=== PATIENT | female | born 1990 | race Caucasian/White ===

== ENCOUNTER 2018-01-02 16:35 | Emergency (ER) | payer OTHER, SELFPAY ==
[2018-01-02 16:59] VITALS: BP 129/79; PULSE 76; RESP 16; TEMP 36.9; O2SAT 97
--- NOTE | 2018-01-02 17:59 | ED.GENADUL_ITS ---
Disposition Clinical Impression: Contusion of right ankle Disposition: HOME Condition: Stable Instructions: Contusion in Adults (ED), RICE Therapy (ED) Additional Instructions: Continue to use tyat-byh-ibnjolu Tylenol Motrin along with icing and elevating her right ankle. Otherwise you may continue to walk and perform normal activities. If the supportive ankle brace that you were given helps you may wear this but this is necessary at all times given diagnosis of a contusion and not a sprain. If you not having signs of improvement over the next 2 weeks please follow-up with your primary care provider for reassessment. Referrals: Ramona Mcnamara NP [Primary Care Provider] - 2 weeks (If not showing signs of improvement please follow-up with your primary care provider for reassessment in the next 2 weeks.) Medical Decision Making - Medical Decision Making Patient reporting blunt trauma to right lateral ankle that occurred couple days ago. She has been icing it and resting it with [id number] pain medication use but is still having continued discomfort especially with walking. 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 Utilizing auto ankle rules patient does not need any imaging at this time as she is fully ambulatory and no bony tenderness to palpation of the ankle but soft tissue tenderness is noted just below the lateral malleolus. Given this I do feel that patient's symptoms are consistent with contusion. Typically I would use an Pino wrap but given patient's occupation and walking around a lot I feel that this may easily come undone so patient was given a lace up ankle brace as I feel that this will provide some more support and stay in place better for her occupation. Patient was encouraged to rest ice and elevate but otherwise I feel that she may continue her activity as normal. Patient was encouraged to follow-up with primary care if not improving over the next 2 weeks. After discussion of diagnosis and plan of care with patient patient agreed and stated no further needs, questions, or concerns at this time. History of Present Illness - General Chief complaint: Orthopedic Stated complaint: INJURED ANKLE Time Seen by Provider: 01/02/18 17:56 Source: patient, RN notes reviewed Mode of arrival: ambulatory Limitations: no limitations - History of Present Illness Initial comments: Patient reports 3 days ago she struck the lateral aspect of her right ankle on a screen door. Since then she has had some swelling to the area and minimal amount of pain but with any significant walking or ambulation she does notice a increase in discomfort. Patient is concerned due to being a script developer here at the hospital and having to be on her feet a lot with this increasing or worsening discomfort and pain. Onset/Timin -: days(s) Location: right, lower extremity (ankle) Severity scale (1-10): 2 Quality: aching Consistency: constant Improves with: rest Worsens with: movement Associated Symptoms: denies other symptoms Treatments Prior to Arrival: NSAID - Related Data [place]-3 Fatty Acids [Fish Oil] 300 mg PO DAILY PRN 11/01/16 l-Norgest/E.estradiol-E.estrad [Camrese 0.15-0.03-0.01 mg Tab] 1 tab-cap PO DAILY 90 Days #1 tab-cap 09/09/17 Triamcinolone [Kenalog 0.025% Oint] 2 - 4 gm TP BID PRN #1 tube 11/18/17 Sertraline HCl 50 mg PO DAILY #90 tab-cap 11/19/17 Naproxen Sodium [Aleve] 1 - 2 tab PO PRN PRN 01/02/18 Allergies Allergy/AdvReac Type Severity Reaction Status Date / Time lactose Allergy Unknown Other (See Unverified 01/02/18 17:16 Comment) Review of Systems Constitutional: no symptoms reported. denies: chills, fever Respiratory: no symptoms reported Cardiovascular: denies: syncope Musculoskeletal: as per HPI, joint swelling, arthralgia Skin: denies: change in color Comment: All other systems reviewed and negative Past Medical History - Past Medical History Medical history: no medical history Surgical history: no surgical history - Social History Smoking status: never smoker Alcohol use: rarely Drug use: none General Exam - General Limitations: no limitations General appearance: alert, in no apparent distress - Head Head exam: Present: atraumatic - Respiratory Respiratory exam: Absent: respiratory distress - Cardiovascular Cardiovascular Exam: Present: regular rate, normal rhythm - Expanded Lower Extremity Exam Right Knee exam: Present: normal inspection, full ROM. Absent: tenderness Lower Leg exam: Present: normal inspection, full ROM. Absent: tenderness Ankle exam: Present: full ROM, tenderness (To palpation of soft tissue distal to the lateral malleolus but no bony tenderness is noted on medial or lateral malleolus along with no tenderness to palpation ), swelling (Mild to right lateral ankle). Absent: ecchymosis, crepidus Foot/Toe exam: Present: normal inspection, full ROM. Absent: tenderness, calcaneal tenderness, tenderness at base of 5th metatarsal Neuro vascular tendon exam: Present: no vascular compromise. Absent: pulse deficit, motor deficit, sensory deficit, tendon deficit Gait: observed and normal. negative: unable to bear weight - Neurological Exam Neurological exam: Present: alert, oriented X3. Absent: altered - Skin Skin exam: Present: warm, dry, intact, normal color Course Vital Signs - 24 hr 01/02/18 16:59 Temperature 36.9 C Pulse 76 Respiratory 16 Rate Blood Pressure 129/79 Pulse Oximetry 97
== END 2018-01-02 18:08 | disposition home or self-care (01) ==
LOC: ER 02-10 14:48
PROVIDERS: Emergency Provider Physician Assistant; PCP Nurse Practitioner Family
DX: S90.01XA Contusion of right ankle, initial encounter (principal); W22.8XXA Striking against or struck by other objects, initial encounter
CPT/HCPCS: 29515; 99283; L1902